=== PATIENT | female | born 1955 | race Caucasian/White ===

== ENCOUNTER 2019-10-16 07:51 | Day surgery (SDC) | payer MEDICARE, OTHER ==
[~2019-10-16 07:51] MED LIST: Acetaminophen 325 MG Tab PO SCH; Bisacodyl 5 MG Tab PO PRN; Cyclobenzaprine 10 MG Tab PO PRN; Ketorolac 15 MG/ML SDV IVPUSH PRN; Lactated Ringers 1,000 ML IV SCH; Lidocaine 1%/Sod Bicarbonate in NS 8.4% 1 ML Syringe IDERM PRN; Magnesium Hydroxide 400 MG/5 ML Susp 30 ML Cup PO PRN; Morphine 2 MG/ML SYRINGE IVPUSH PRN; Morphine 8 MG, EPINEPHrine 0.3 MG, Cefuroxime 750 MG, Ketorolac 30 MG, Sodium Chloride ... PRN; Naloxone 0.4 MG/ML SDV IVPUSH PRN; Ondansetron 4 MG/2 ML SDV IVPUSH PRN; Pregabalin 25 MG Cap PO SCH; Sennosides 8.6 MG Tab PO PRN; Sodium Chloride 0.9% 10 ML Syringe FLUSH PRN; oxyCODONE ER 10 MG TAB.ER PO SCH
[2019-10-16] MEDS ORDERED: Vancomycin 1 GM SDV ONE (08:09)
[2019-10-16] MEDS ORDERED: Triamcinolone Acetonide 40 MG/ML 1 ML SDV ONE (08:09)
[2019-10-16] MEDS ORDERED: ceFAZolin 1 GM Vial ONE ×2 (08:10→08:28)
[2019-10-16] MEDS ORDERED: Iodine/Sodium Iodide 2% Tincture 30 ML Bottle ONE (08:10)
[2019-10-16] MEDS ORDERED: Bupivacaine 0.25% 10 ML SDV ONE (08:10)
[2019-10-16] MEDS ORDERED: Propofol 200 MG/20 ML SDV ONE ×2 (08:24→08:30)
[2019-10-16] MEDS ORDERED: Ketamine 500 mg/10 ML MDV ONE (08:24)
[2019-10-16] MEDS ORDERED: Midazolam 1 MG/ML 2 ML SDV ONE (08:24)
[2019-10-16] MEDS ORDERED: Lidocaine 1% 4 ML ONE (08:25)
[2019-10-16] MEDS ORDERED: EPINEPHrine 1 MG/ML SDV ONE (08:48)
[2019-10-16] MEDS ORDERED: Ropivacaine 0.5% 5 MG/ML 30 ML SDV ONE (08:48)
[2019-10-16] MEDS ORDERED: Dexamethasone 4 MG/ML 5 ML MDV ONE (10:11)
[2019-10-16] MEDS ORDERED: diphenhydrAMINE 50 MG/ML SDV ONE (10:16)
[2019-10-16] MEDS ORDERED: Lactated Ringers 1,000 ML ONE (10:20)
[2019-10-16] MEDS ORDERED: Ondansetron 4 MG/2 ML SDV ONE (11:11)
[2019-10-16] MEDS ORDERED: HYDROmorphone 0.5 MG/0.5 ML Syringe IVPUSH PRN (11:34)
[2019-10-16] MEDS ORDERED: Ondansetron 4 MG/2 ML SDV IVPUSH PRN (11:34)
[2019-10-16] MEDS ORDERED: fentaNYL 100 MCG/2 ML SDV IVPUSH PRN (11:34)
--- NOTE | 2019-10-16 11:35 | PCM.POSTAN ---
POST ANESTHESIA ASSESSMENT - MENTAL STATUS Mental Status: Alert, Oriented - VITAL SIGNS Vital Signs: Last Vital Signs Temp 36.1 C 10/16/19 11:25 Pulse 84 10/16/19 08:00 Resp 12 10/16/19 11:30 BP 131/70 10/16/19 11:30 Pulse Ox 100 10/16/19 11:30 - RESPIRATORY Respiratory Status: Respiratory Rate WNL, Airway Patent, O2 Saturation Stable - CARDIOVASCULAR CV Status: Pulse Rate WNL, Blood Pressure Stable - GASTROINTESTINAL GI Status: No Symptoms - PAIN Pain Score: 0 - POST OP HYDRATION Hydration Status: Adequate & Stable
--- NOTE | 2019-10-16 11:37 | PCM.PREANE ---
Preanesthetic Assessment - Procedure Proposed Procedure: Right Total Knee Replacement - Anesthesia/Transfusion/Family Hx Anesthesia History: Prior Anesthesia Without Reaction Family History of Anesthesia Reaction: No - Review of Systems General: No Symptoms Pulmonary: No Symptoms Cardiovascular: No Symptoms Gastrointestinal: No Symptoms Neurological: No Symptoms Other: Reports: None - Physical Assessment NPO Status Date: 10/15/19 NPO Status Time: 23:30 Vital Signs: Last Vital Signs Temp 36.1 C 10/16/19 11:25 Pulse 84 10/16/19 08:00 Resp 12 10/16/19 11:30 BP 131/70 10/16/19 11:30 Pulse Ox 100 10/16/19 11:30 Height: 1.7 m Weight: 66.678 kg ASA Class: 2 Mental Status: Alert & Oriented x3 Airway Class: Mallampati = 2 Dentition: Reports: [place](s), Caries Thyro-Mental Finger Breadths: 2 Mouth Opening Finger Breadths: 3 ROM/Head Extension: Full Lungs: Clear to Auscultation, Normal Respiratory Effort Cardiovascular: Regular Rate, Regular Rhythm - Lab Values: Laboratory Last Values COVID-19 PCR Not detected (NOT DETECT) 10/13/19 09:30 MRSA (PCR) Negative 09/23/19 14:40 - Allergies Allergies/Adverse Reactions: Allergies Allergy/AdvReac Type Severity Reaction Status Date / Time No Known Drug Allergies Allergy unknown Verified 10/15/19 13:50 - Acknowledgements Anesthesia Type Planned: Spinal Pt an Appropriate Candidate for the Planned Anesthesia: Yes Alternatives and Risks of Anesthesia Discussed w Pt/Guardian: Yes Pt/Guardian Understands and Agrees with Anesthesia Plan: Yes PreAnesthesia Questionnaire HEENT History: Reports: Cataract, Hard of Hearing Other HEENT History: wears glasses Other Genitourinary History: UTI Other OB/BYN History: C section Musculoskeletal History: Reports: Arthritis - SUBSTANCE USE Smoking Status *Q: Never Smoker Recreational Drug Use History: No - HOME MEDS Home Medications: Home Meds Calcium Carbonate [Calcium] 500 mg PO DAILY 10/15/19 [History] Fish Oil/[place]-3 Fatty Acids [Fish Oil 1,000 MG] 1 cap PO DAILY 10/15/19 [History] Lactobacillus Combination No.4 [Probiotic] 1 cap PO DAILY 10/15/19 [History] Loratadine [Claritin] 10 mg PO DAILY 10/15/19 [History] Non-Formulary Medication [NF Drug] 1 tab PO DAILY 10/15/19 [History] Cholecalciferol (Vitamin D3) [Vitamin D] 5,000 unit PO DAILY 10/16/19 [History] - CURRENT (IN HOUSE) MEDS Current Meds: Current Medications Acetaminophen (Tylenol) 975 mg PO ONETIME [facility] Stop: 10/16/19 16:00 Last Admin: 10/16/19 08:02 Dose: 975 mg Documented by: Bisacodyl (Dulcolax) 5 mg PO DAILY PRN PRN Reason: Constipation Calcium Carbonate/Glycine (Tums) 500 mg PO DAILY [facility] Cholecalciferol (Vitamin D3) 5,000 unit PO DAILY [facility] Morphine Sulfate 8 mg/Epinephrine HCl 0.3 mg/Cefuroxime Sodium 750 mg/Ketorolac Tromethamine 30 mg/Sodium Chloride 7.9 ml 0 mg .XX ASDIRECTED PRN PRN Reason: Pain Stop: 10/16/19 12:00 Cyclobenzaprine HCl (Flexeril) 10 mg PO TID PRN PRN Reason: Spasms Docusate Sodium (Colace) 100 mg PO BID [facility] Famotidine (Pepcid) 20 mg PO Q12H [facility] Fentanyl (Sublimaze) 50 mcg IVPUSH Q5M PRN PRN Reason: Pain Hydromorphone HCl (Dilaudid) 0.5 mg IVPUSH Q10M PRN PRN Reason: Pain (severe 7-10) Lactated Ringer's (Ringers, Lactated) 1,000 mls @ 125 mls/hr IV ASDIRECTED [facility] Stop: 10/16/19 23:00 Last Admin: 10/16/19 08:30 Dose: 125 mls/hr Documented by: Cefazolin Sodium/Dextrose 2 gm (/ Premix) 50 mls @ 100 mls/hr IV Q8H [facility] Stop: 10/17/19 08:59 Ketorolac Tromethamine (Toradol) 15 mg IVPUSH Q6H PRN PRN Reason: Pain Lidocaine/Sodium Bicarbonate (Buffered Lidocaine 1% In Ns 8.4%) 0.25 ml IDERM ONETIME PRN PRN Reason: Prior to IV Start Stop: 10/16/19 18:00 Last Admin: 10/16/19 08:29 Dose: 0.25 ml Documented by: Loratadine (Claritin) 10 mg PO DAILY [facility] Magnesium Hydroxide (Milk Of Magnesia) 30 ml PO BID PRN PRN Reason: Constipation Morphine Sulfate (Morphine) 2 mg IVPUSH Q2H PRN PRN Reason: Breakthrough Pain Naloxone HCl (Narcan) 0.1 mg IVPUSH Q5M PRN PRN Reason: Oversedation Ondansetron HCl (Zofran) 4 mg IVPUSH Q6H PRN PRN Reason: Nausea/Vomiting Ondansetron HCl (Zofran) 4 mg IVPUSH ONETIME PRN PRN Reason: Nausea/Vomiting Oxycodone HCl (Oxycontin) 10 mg PO ONETIME [facility] Stop: 10/16/19 16:00 Last Admin: 10/16/19 08:02 Dose: 10 mg Documented by: Oxycodone/Acetaminophen (Percocet 325-5 Mg) 1 - 2 tab PO Q4H PRN PRN Reason: Pain Pregabalin (Lyrica) 50 mg PO ONETIME [facility] Stop: 10/16/19 16:00 Last Admin: 10/16/19 08:02 Dose: 50 mg Documented by: Rivaroxaban (Xarelto) 10 mg PO DAILY [facility] Saccharomyces Boulardii (Florastor) 250 mg PO DAILY [facility] Senna (Senna) 8.6 mg PO BID PRN PRN Reason: Constipation Sodium Chloride (Saline Flush) 10 ml FLUSH ASDIRECTED PRN PRN Reason: Keep Vein Open Stop: 10/16/19 18:00 Discontinued Medications Bupivacaine HCl (Sensorcaine-Mpf 0.25%) Confirm Administered Dose 40 ml .ROUTE .STK-MED ONE Stop: 10/16/19 08:11 Cefazolin Sodium (Ancef) Confirm Administered Dose 2 gm .ROUTE .STK-MED ONE Stop: 10/16/19 08:11 Cefazolin Sodium (Ancef) Confirm Administered Dose 2 gm .ROUTE .STK-MED ONE Stop: 10/16/19 08:29 Dexamethasone (Dexamethasone) Confirm Administered Dose 20 mg .ROUTE .STK-MED ONE Stop: 10/16/19 10:12 Diphenhydramine HCl (Benadryl) Confirm Administered Dose 50 mg .ROUTE .STK-MED ONE Stop: 10/16/19 10:17 Epinephrine HCl (Adrenalin) Confirm Administered Dose 1 mg .ROUTE .STK-MED ONE Stop: 10/16/19 08:49 Glycopyrrolate () Confirm Administered Dose 1 mg .ROUTE .STK-MED ONE Stop: 10/16/19 11:17 Lidocaine HCl (Xylocaine-Mpf 1%) Confirm Administered Dose 4 mls @ as directed .ROUTE .STK-MED ONE Stop: 10/16/19 08:26 Lactated Ringer's (Ringers, Lactated) Confirm Administered Dose 1,000 mls @ as directed .ROUTE .STK-MED ONE Stop: 10/16/19 10:21 Iodine (Iodine 2% Mild Tincture) Confirm Administered Dose 30 ml .ROUTE .STK-MED ONE Stop: 10/16/19 08:11 Ketamine HCl (Ketalar) Confirm Administered Dose 500 mg .ROUTE .STK-MED ONE Stop: 10/16/19 08:25 Ketorolac Tromethamine (Toradol) 15 mg IVPUSH Q6H PRN PRN Reason: Pain Midazolam HCl (Versed 1 Mg/Ml) Confirm Administered Dose 2 mg .ROUTE .STK-MED ONE Stop: 10/16/19 08:25 Ondansetron HCl (Zofran) Confirm Administered Dose 4 mg .ROUTE .STK-MED ONE Stop: 10/16/19 11:12 Propofol (Diprivan 20 Ml) Confirm Administered Dose 400 mg .ROUTE .STK-MED ONE Stop: 10/16/19 08:25 Propofol (Diprivan 20 Ml) Confirm Administered Dose 200 mg .ROUTE .STK-MED ONE Stop: 10/16/19 08:31 Ropivacaine (Naropin 0.5%) Confirm Administered Dose 30 ml .ROUTE .STK-MED ONE Stop: 10/16/19 08:49 Tranexamic Acid (Cyklokapron) Confirm Administered Dose 1,000 mg .ROUTE .STK-MED ONE Stop: 10/16/19 08:10 Triamcinolone Acetonide (Kenalog-40) Confirm Administered Dose 80 mg .ROUTE .STK-MED ONE Stop: 10/16/19 08:10 Vancomycin HCl (Vancomycin) Confirm Administered Dose 1 gm .ROUTE .STK-MED ONE Stop: 10/16/19 08:10
--- NOTE | 2019-10-16 12:26 | PCM.SN.2 ---
- Free Text/Narrative Note: Right selective femoral nerve block at the adductor canal for post-procedure pain control under US guidance requested by Dr. Savage. Time Out: 1201 Start: 1204 End: 1208 Chart reviewed. Consent signed. Questions answered. Appropriate monitors applied. Time out performed. Right mid-shaft femur identified with ultrasound, scanning medially of femur, the femoral artery in the adductor canal visualized, and the femoral nerve located laterally to the artery. The skin was prepped lateral to the ultrasound probe with chlorahexadine times two. The 21ga 4 insulated block needle was inserted under direct ultrasound guidance into the adductor canal. 25mL of 0.5% ropivacaine with 1:200,000 epinephrine was injected circumferentially around the nerve with intermittent negative aspiration noted. Patient tolerated the procedure well. Sterile technique noted along with sterile gloves, mask, and sterile probe cover. See picture on progress note and vital signs on nurses notes. Block completed in PACU. Eduardo Rodriguez CRNA
[2019-10-16] MEDS ORDERED: Ketorolac 15 MG/ML SDV IVPUSH PRN (13:00)
--- NOTE | 2019-10-16 13:47 | CR ---
Right knee: AP and lateral views of the right knee were obtained. Comparison: No previous right knee study. Knee prosthesis is seen. Components are aligned. Soft tissue air is noted from the surgical procedure. Underlying bony structures are intact. Impression: 1. Satisfactory postop radiographic appearance of recently placed right knee prosthesis. Diagnostic code #1 This report was dictated in MDT
[2019-10-16] MEDS: Acetaminophen/oxyCODONE 325-5 MG Tab PO PRN ×2 (15:10→20:38)
[2019-10-16] MEDS: ceFAZolin 2 GM in Premix Bag 1 BAG IV SCH (16:56)
[2019-10-16] MEDS: Famotidine 20 MG Tab PO SCH (21:25)
[2019-10-16] MEDS: Docusate Sodium 100 MG Cap PO SCH (21:25)
[2019-10-17] MEDS: Acetaminophen/oxyCODONE 325-5 MG Tab PO PRN ×2 (00:50→05:56)
[2019-10-17] MEDS: ceFAZolin 2 GM in Premix Bag 1 BAG IV SCH ×2 (00:57→07:53)
[2019-10-17] MEDS ORDERED: Acetaminophen/HYDROcodone 325-5 MG Tab PO PRN (08:02)
--- NOTE | 2019-10-17 08:21 | PCM.SURGPN ---
- General Info Date of Service: 10/17/19 POD#: 1 Functional Status: Reports: Pain Controlled, Tolerating Diet, Ambulating, Urinating, Incentive Spirometry, Other (The pt states she is moving well. She is bothered by nausea.) - Review of Systems General: Denies: Fever, Chills Gastrointestinal: Reports: Nausea, Vomiting, Other (The pt reports today that she has a hx of nausea and vomiting with use of Percocet.) - Patient Data Vitals - Most Recent: Last Vital Signs Temp 97.0 F 10/17/19 05:55 Pulse 53 L 10/17/19 05:55 Resp 16 10/17/19 05:55 BP 129/70 10/17/19 05:55 Pulse Ox 97 10/17/19 05:55 Weight - Most Recent: 147 lb I&O - Last 24 Hours: Intake & Output 10/16/19 10/17/19 10/17/19 22:59 06:59 14:59 Intake Total 50 Output Total 300 700 Balance -300 -650 Lab Results Last 24 Hrs: Laboratory Results - last 24 hr 10/17/19 10/17/19 Range/Units 05:50 05:50 WBC 12.34 H (3.98-10.04) K/mm3 RBC 3.88 L (3.98-5.22) M/mm3 Hgb 11.3 (11.2-15.7) gm/dl Hct 35.1 (34.1-44.9) % MCV 90.5 (79.4-94.8) fl MCH 29.1 (25.6-32.2) pg MCHC 32.2 (32.2-35.5) g/dl RDW Std Deviation 43.1 (36.4-46.3) fL Plt Count 305 (182-369) K/mm3 MPV 10.2 (9.4-12.3) fl Sodium 131 L (136-145) mEq/L Potassium 4.6 (3.5-5.1) mEq/L Chloride 98 (98-107) mEq/L Carbon Dioxide 24 (21-32) mEq/L Anion Gap 13.6 (5-15) BUN 13 (7-18) mg/dL Creatinine 1.0 (0.55-1.02) mg/dL Est Cr Clr Drug Dosing 54.54 mL/min Estimated GFR (MDRD) 56 (>60) mL/min BUN/Creatinine Ratio 13.0 L (14-18) Glucose 120 H (80-115) mg/dL Calcium 9.3 (8.5-10.1) mg/dL Total Bilirubin 0.3 (0.2-1.0) mg/dL AST 23 (15-37) U/L ALT 21 (14-59) U/L Alkaline Phosphatase 64 (46-116) U/L Total Protein 7.3 (6.4-8.2) g/dl Albumin 3.4 (3.4-5.0) g/dl Globulin 3.9 gm/dL Albumin/Globulin Ratio 0.9 L (1-2) Med Orders - Current: Current Medications Hydrocodone Bitart/Acetaminophen (Foster 325-5 Mg) 1 - 2 tab PO Q4H PRN PRN Reason: Pain Bisacodyl (Dulcolax) 5 mg PO DAILY PRN PRN Reason: Constipation Calcium Carbonate/Glycine (Tums) 500 mg PO DAILY [facility] Cholecalciferol (Vitamin D3) 5,000 unit PO DAILY [facility] Cyclobenzaprine HCl (Flexeril) 10 mg PO TID PRN PRN Reason: Spasms Docusate Sodium (Colace) 100 mg PO BID [facility] Last Admin: 10/16/19 21:25 Dose: 100 mg Documented by: Famotidine (Pepcid) 20 mg PO Q12H [facility] Last Admin: 10/16/19 21:25 Dose: 20 mg Documented by: Cefazolin Sodium/Dextrose 2 gm (/ Premix) 50 mls @ 100 mls/hr IV Q8H [facility] Stop: 10/17/19 08:59 Last Admin: 10/17/19 07:53 Dose: 100 mls/hr Documented by: Ketorolac Tromethamine (Toradol) 15 mg IVPUSH Q6H PRN PRN Reason: Pain Loratadine (Claritin) 10 mg PO DAILY [facility] Magnesium Hydroxide (Milk Of Magnesia) 30 ml PO BID PRN PRN Reason: Constipation Morphine Sulfate (Morphine) 2 mg IVPUSH Q2H PRN PRN Reason: Breakthrough Pain Naloxone HCl (Narcan) 0.1 mg IVPUSH Q5M PRN PRN Reason: Oversedation Ondansetron HCl (Zofran) 4 mg IVPUSH Q6H PRN PRN Reason: Nausea/Vomiting Last Admin: 10/17/19 07:52 Dose: 4 mg Documented by: Rivaroxaban (Xarelto) 10 mg PO DAILY [facility] Saccharomyces Boulardii (Florastor) 250 mg PO DAILY [facility] Senna (Senna) 8.6 mg PO BID PRN PRN Reason: Constipation Discontinued Medications Acetaminophen (Tylenol) 975 mg PO ONETIME [facility] Stop: 10/16/19 16:00 Last Admin: 10/16/19 08:02 Dose: 975 mg Documented by: Bupivacaine HCl (Sensorcaine-Mpf 0.25%) Confirm Administered Dose 40 ml .ROUTE .STK-MED ONE Stop: 10/16/19 08:11 Last Admin: 10/16/19 10:53 Dose: 34 ml Documented by: Cefazolin Sodium (Ancef) Confirm Administered Dose 2 gm .ROUTE .STK-MED ONE Stop: 10/16/19 08:11 Last Admin: 10/16/19 10:52 Dose: 2 gm Documented by: Cefazolin Sodium (Ancef) Confirm Administered Dose 2 gm .ROUTE .STK-MED ONE Stop: 10/16/19 08:29 Morphine Sulfate 8 mg/Epinephrine HCl 0.3 mg/Cefuroxime Sodium 750 mg/Ketorolac Tromethamine 30 mg/Sodium Chloride 7.9 ml 0 mg .XX ASDIRECTED PRN PRN Reason: Pain Stop: 10/16/19 12:00 Last Admin: 10/16/19 10:53 Dose: 788.3 mg Documented by: Dexamethasone (Dexamethasone) Confirm Administered Dose 20 mg .ROUTE .STK-MED ONE Stop: 10/16/19 10:12 Diphenhydramine HCl (Benadryl) Confirm Administered Dose 50 mg .ROUTE .STK-MED ONE Stop: 10/16/19 10:17 Epinephrine HCl (Adrenalin) Confirm Administered Dose 1 mg .ROUTE .STK-MED ONE Stop: 10/16/19 08:49 Fentanyl (Sublimaze) 50 mcg IVPUSH Q5M PRN PRN Reason: Pain Stop: 10/16/19 18:00 Glycopyrrolate () Confirm Administered Dose 1 mg .ROUTE .STK-MED ONE Stop: 10/16/19 11:17 Hydromorphone HCl (Dilaudid) 0.5 mg IVPUSH Q10M PRN PRN Reason: Pain (severe 7-10) Stop: 10/16/19 18:00 Lactated Ringer's (Ringers, Lactated) 1,000 mls @ 125 mls/hr IV ASDIRECTED [facility] Stop: 10/16/19 23:00 Last Admin: 10/16/19 08:30 Dose: 125 mls/hr Documented by: Lidocaine HCl (Xylocaine-Mpf 1%) Confirm Administered Dose 4 mls @ as directed .ROUTE .STK-MED ONE Stop: 10/16/19 08:26 Lactated Ringer's (Ringers, Lactated) Confirm Administered Dose 1,000 mls @ as directed .ROUTE .STK-MED ONE Stop: 10/16/19 10:21 Iodine (Iodine 2% Mild Tincture) Confirm Administered Dose 30 ml .ROUTE .STK-MED ONE Stop: 10/16/19 08:11 Last Admin: 10/16/19 10:50 Dose: 18 ml Documented by: Ketamine HCl (Ketalar) Confirm Administered Dose 500 mg .ROUTE .STK-MED ONE Stop: 10/16/19 08:25 Ketorolac Tromethamine (Toradol) 15 mg IVPUSH Q6H PRN PRN Reason: Pain Lidocaine/Sodium Bicarbonate (Buffered Lidocaine 1% In Ns 8.4%) 0.25 ml IDERM ONETIME PRN PRN Reason: Prior to IV Start Stop: 10/16/19 18:00 Last Admin: 10/16/19 08:29 Dose: 0.25 ml Documented by: Midazolam HCl (Versed 1 Mg/Ml) Confirm Administered Dose 2 mg .ROUTE .STK-MED ONE Stop: 10/16/19 08:25 Ondansetron HCl (Zofran) Confirm Administered Dose 4 mg .ROUTE .STK-MED ONE Stop: 10/16/19 11:12 Ondansetron HCl (Zofran) 4 mg IVPUSH ONETIME PRN PRN Reason: Nausea/Vomiting Stop: 10/16/19 18:00 Oxycodone HCl (Oxycontin) 10 mg PO ONETIME [facility] Stop: 10/16/19 16:00 Last Admin: 10/16/19 08:02 Dose: 10 mg Documented by: Oxycodone/Acetaminophen (Percocet 325-5 Mg) 1 - 2 tab PO Q4H PRN PRN Reason: Pain Last Admin: 10/17/19 05:56 Dose: 2 tab Documented by: Pregabalin (Lyrica) 50 mg PO ONETIME [facility] Stop: 10/16/19 16:00 Last Admin: 10/16/19 08:02 Dose: 50 mg Documented by: Propofol (Diprivan 20 Ml) Confirm Administered Dose 200 mg .ROUTE .STK-MED ONE Stop: 10/16/19 08:25 Propofol (Diprivan 20 Ml) Confirm Administered Dose 200 mg .ROUTE .STK-MED ONE Stop: 10/16/19 08:31 Ropivacaine (Naropin 0.5%) Confirm Administered Dose 30 ml .ROUTE .STK-MED ONE Stop: 10/16/19 08:49 Sodium Chloride (Saline Flush) 10 ml FLUSH ASDIRECTED PRN PRN Reason: Keep Vein Open Stop: 10/16/19 18:00 Tranexamic Acid (Cyklokapron) Confirm Administered Dose 1,000 mg .ROUTE .STK-MED ONE Stop: 10/16/19 08:10 Last Admin: 10/16/19 10:54 Dose: 1,000 mg Documented by: Triamcinolone Acetonide (Kenalog-40) Confirm Administered Dose 80 mg .ROUTE .STK-MED ONE Stop: 10/16/19 08:10 Last Admin: 10/16/19 11:13 Dose: 80 mg Documented by: Vancomycin HCl (Vancomycin) Confirm Administered Dose 1 gm .ROUTE .STK-MED ONE Stop: 10/16/19 08:10 Last Admin: 10/16/19 10:54 Dose: 1 gm Documented by: - Exam Wound/Incisions: Dressing Dry and Intact General: Alert, Cooperative, No Acute Distress Lungs: Normal Respiratory Effort Extremities: Other (NVS intact for RLE. Linn's negative. ) Sepsis Event Note - Evaluation Sepsis Screening Result: No Definite Risk - Focused Exam Vital Signs: Vital Signs Temp Pulse Resp BP Pulse Ox 10/17/19 05:55 97.0 F 53 L 16 129/70 97 10/17/19 01:01 97.3 F 80 18 123/92 H 96 - Problem List Review Problem List Initiated/Reviewed/Updated: Yes - My Orders Last 24 Hours: Active Orders 24 hr Category Date Time Status Communication Order [RC] ASDIRECTED Care 10/16/19 11:34 Active Communication Order [RC] ASDIRECTED Care 10/17/19 08:17 Ordered Pulse Oximetry [RC] ASDIRECTED Care 10/16/19 11:34 Active Ready for Discharge [RC] PER UNIT ROUTINE Care 10/17/19 08:17 Ordered Vital Signs [RC] Q4HR Care 10/16/19 11:34 Active Regular Diet [DIET] Diet 10/16/19 Lunch Active Acetaminophen/HYDROcodone [Foster 325-5 MG] Med 10/17/19 08:02 Active 1 - 2 tab PO Q4H PRN Calcium Carbonate [Tums] Med 10/17/19 09:00 Active 500 mg PO DAILY Cholecalciferol (Vitamin D3) [Vitamin D3] Med 10/17/19 09:00 Active 5,000 unit PO DAILY Docusate Sodium [Colace] Med 10/16/19 21:00 Active 100 mg PO BID Famotidine [Pepcid] Med 10/16/19 21:00 Active 20 mg PO Q12H Ketorolac [Toradol] Med 10/16/19 13:00 Active 15 mg IVPUSH Q6H PRN Loratadine [Claritin] Med 10/17/19 09:00 Active 10 mg PO DAILY Rivaroxaban [Xarelto] Med 10/17/19 09:00 Active 10 mg PO DAILY Saccharomyces Boulardii [Florastor] Med 10/17/19 09:00 Active 250 mg PO DAILY ceFAZolin [Ancef] 2 gm Med 10/16/19 16:30 Active Premix Bag 1 bag IV Q8H Medication Orders Hydrocodone Bitart/Acetaminophen (Foster 325-5 Mg) 1 - 2 tab PO Q4H PRN PRN Reason: Pain Bisacodyl (Dulcolax) 5 mg PO DAILY PRN PRN Reason: Constipation Calcium Carbonate/Glycine (Tums) 500 mg PO DAILY [facility] Cholecalciferol (Vitamin D3) 5,000 unit PO DAILY [facility] Cyclobenzaprine HCl (Flexeril) 10 mg PO TID PRN PRN Reason: Spasms Docusate Sodium (Colace) 100 mg PO BID [facility] Last Admin: 10/16/19 21:25 Dose: 100 mg Documented by: JOAQUIN Famotidine (Pepcid) 20 mg PO Q12H [facility] Last Admin: 10/16/19 21:25 Dose: 20 mg Documented by: JOAQUIN Cefazolin Sodium/Dextrose 2 gm (/ Premix) 50 mls @ 100 mls/hr IV Q8H [facility] Stop: 10/17/19 08:59 Last Admin: 10/17/19 07:53 Dose: 100 mls/hr Documented by: Infusion: 10/17/19 01:27 Dose: 100 mls/hr Documented by: Admin: 10/17/19 00:57 Dose: 100 mls/hr Documented by: Infusion: 10/16/19 17:26 Dose: 100 mls/hr Documented by: Admin: 10/16/19 16:56 Dose: 100 mls/hr Documented by: CICI Ketorolac Tromethamine (Toradol) 15 mg IVPUSH Q6H PRN PRN Reason: Pain Loratadine (Claritin) 10 mg PO DAILY [facility] Magnesium Hydroxide (Milk Of Magnesia) 30 ml PO BID PRN PRN Reason: Constipation Morphine Sulfate (Morphine) 2 mg IVPUSH Q2H PRN PRN Reason: Breakthrough Pain Naloxone HCl (Narcan) 0.1 mg IVPUSH Q5M PRN PRN Reason: Oversedation Ondansetron HCl (Zofran) 4 mg IVPUSH Q6H PRN PRN Reason: Nausea/Vomiting Last Admin: 10/17/19 07:52 Dose: 4 mg Documented by: CICI Rivaroxaban (Xarelto) 10 mg PO DAILY [facility] Saccharomyces Boulardii (Florastor) 250 mg PO DAILY [facility] Senna (Senna) 8.6 mg PO BID PRN PRN Reason: Constipation - Assessment Assessment (Free Text/Narrative):: POD#1 - right TKA with left knee cortisone injection - Plan Plan (Free Text/Narrative):: 1. Hgb 11.3. 2. Xarelto 10mg PO daily x 14 days (family hx VTE). Pt will then transition to 325mg ASA PO BID. Frequent mobility, TEDs. 3. Discharge to home today. 4. Outpatient therapy. The pt's case was discussed with Dr. Savage.
[2019-10-17] MEDS ORDERED: Rivaroxaban 10 MG Tab PO SCH (09:00)
[2019-10-17] MEDS ORDERED: Calcium Carbonate 500 MG Tab.Chew PO SCH (09:00)
[2019-10-17] MEDS ORDERED: Cholecalciferol (Vitamin D3) 5,000 UNIT Tab PO SCH (09:00)
[2019-10-17] MEDS ORDERED: Loratadine 10 MG Tab PO SCH (09:00)
[2019-10-17] MEDS ORDERED: Saccharomyces Boulardii (Probiotic) 250 MG Cap PO SCH (09:00)
--- NOTE | 2019-10-17 09:37 | PCM48HPAN ---
Post Anesthesia Note - EVALUATION WITHIN 48HRS OF ANESTHETIC Vital Signs in Normal Range: Yes Patient Participated in Evaluation: Yes Respiratory Function Stable: Yes Airway Patent: Yes Cardiovascular Function Stable: Yes Hydration Status Stable: Yes Pain Control Satisfactory: Yes Nausea and Vomiting Control Satisfactory: Yes Mental Status Recovered: Yes Vital Signs: Last Vital Signs Temp 36.7 C 10/17/19 09:13 Pulse 50 L 10/17/19 09:13 Resp 14 10/17/19 09:13 BP 127/64 10/17/19 09:13 Pulse Ox 99 10/17/19 09:13
[2019-10-17] MEDS: Docusate Sodium 100 MG Cap PO SCH (11:28)
[2019-10-17] MEDS: Famotidine 20 MG Tab PO SCH (11:28)
--- NOTE | 2019-10-20 07:08 | PCM.OPNOTE ---
- General Post-Op/Procedure Note Date of Surgery/Procedure: 10/16/19 Operative Procedure(s): right total knee with left knee corticosteroid injection Pre Op Diagnosis: bilateral knee osteoarthrosis Post-Op Diagnosis: Same Anesthesia Technique: Local, MAC, Spinal Primary Surgeon: Parveen Savage Anesthesia Provider: Xin Rodriguez Live Truck Operator: Ratna Flores Live Truck Operator: Naomy Bonner EBL in mLs: 400 Complications: None Condition: Good Free Text/Narrative:: 05/30 9mm 32x10
--- NOTE | 2019-10-20 22:24 | OR ---
DATE OF OPERATION: 10/16/2019 SURGEON: Parveen Savage MD OPERATION PERFORMED: Right total knee arthroplasty with left knee corticosteroid injection. PREOPERATIVE DIAGNOSIS: Bilateral knee osteoarthrosis. POSTOPERATIVE DIAGNOSIS: Bilateral knee osteoarthrosis. ANESTHESIA: Local MAC with spinal. ANESTHESIA PROVIDER: Chelly Bautista. ASSISTANTS: Ratna Flores PA-C and Naomy Bonner LPN ESTIMATED BLOOD LOSS: 400 mL. COMPLICATIONS: None. CONDITION: Stable. IMPLANTS: 1. [place] size 4 press-fit CR femur. 2. [place] size 4 press-fit tibial baseplate. 3. [place] size 4, 9 mm CS polyethylene insert. 4. [place] size 32 x 10 mm press-fit asymmetric patella. DESCRIPTION OF PROCEDURE: The patient was identified in the preop holding area. Proper site was marked and identified by the surgeon. The patient was taken back to the operating theater. After adequate anesthesia, the patient's right lower extremity had a nonsterile tourniquet applied and it was sterilely prepped and draped in the usual sterile fashion. OR time-out was performed. The patient received 2 g IV Ancef. At this time, the right lower extremity was exsanguinated. Tourniquet was insufflated to 300 mmHg. Standard medial parapatellar incision was made. Medial parapatellar arthrotomy was created. Deep fibers of the MCL were raised and anterior fat pad was resected. At this time, attention was turned to the patella. Patella measured 24 and resected to a 14 for a 32 x 10 mm patella. Drill holes were then drilled and found to be in adequate position. The drill was then drilled in the distal femur and the intramedullary distal femoral cutting guide was then placed. 8 mm was resected off the distal femur and was found to be an adequate resection. Sizing guide was placed. It was found to be a size 4 press-fit CR femur that was shown on the implant record at the beginning of this dictation. The drill holes were drilled for the epicondylar axis using Whitesides line and epicondyles as reference. At this time, the 4-in- 1 cutting block was placed. An anterior posterior and anterior and posterior chamfer cuts were then completed. Attention was turned to the tibia. The posterior medial lateral retractors were placed. The extramedullary tibial guide was placed. It was placed in the old footprint of the ACL. It was aligned with the center of the ankle and 0 degrees of slope, 9 mm was then resected off the unaffected side. There was found to be an acceptable reduction. At this time, posterior osteophytes were removed along with medial and lateral meniscus. A trial implant was placed with a correct sized tibia that was mentioned at the beginning of the dictation. A [place] size 4, 9 mm CS polyethylene insert was then placed. The patient's knee was brought through range of motion. The patella was tracking centrally and was stable to varus and valgus stress. Alignment was found to be roughly at 0 degrees. The tibia was stamped and drilled in proper rotation. The universal tibial base plate was impacted in place. Next, the [place] size 4 press-fit CR femur impacted into place and the [place] size 4, 9 mm CS polyethylene insert was placed. The patient's knee was brought into full extension. The patella was then press-fit in place at this time. Tourniquet was deflated. One liter dilute Betadine solution was irrigated through the knee along with 3 L of pulse lavage irrigation with Ancef. Periarticular injection was then completed. The patient's knee was brought through a range of motion. Knee was found to be stable to varus valgus stress, the patella was tracking centrally with full range of motion. At this time, a #2 barbed suture was used for closure of the medial parapatellar arthrotomy. Topical tranexamic acid was placed. 2-0 Vicryl was used subcutaneously, Prineo was used for the skin. The patient tolerated the procedure well and was sent to the PACU in stable condition. After this was completed, under sterile technique, 2 mL of 40 mg Kenalog and 4 mL 0.25% Marcaine were injected in the left knee. The patient tolerated all procedures well. MMDION /[id number] KINZA
== END 2019-10-17 10:15 | disposition home or self-care (01) ==
LOC: JD.SDS 07:51 → JD.MS 07:51 → JD.OB 12:00 → JD.SDS 10-17 10:15
PROVIDERS: ATTEND Orthopaedic Surgery
DX: M17.0 Bilateral primary osteoarthritis of knee (principal); M25.761 Osteophyte, right knee; H26.9 Unspecified cataract; G89.18 Other acute postprocedural pain; Z11.59 Encounter for screening for other viral diseases
CPT/HCPCS: 20610; 27447; 36415; 73560; 80053; 85027; 87641; 97110; 97116; 97161; 97165; 97535; A9270; C1776; J0171; J0690; J0697; J1100; J1200; J1885; J2001; J2250; J2270; J2405; J2704; J2795; J3301; J3370; J3490; J7120; 01402; 64450; U0002

== ENCOUNTER 2020-01-13 10:04 | Day surgery (SDC) | payer MEDICARE, OTHER ==
[2020-01-13] MEDS: Polymyxin B/Trimethoprim 10 ML Bottle EYELF SCH ×3 (10:01→11:47)
[~2020-01-13 10:04] MED LIST changes: -Acetaminophen 325 MG Tab PO SCH; -Bisacodyl 5 MG Tab PO PRN; +Cefuroxime 10 MG/ML SYRINGE EYELF SCH; -Cyclobenzaprine 10 MG Tab PO PRN; -Ketorolac 15 MG/ML SDV IVPUSH PRN; -Lactated Ringers 1,000 ML IV SCH; +Lidocaine 1% PF 2 ML SDV INJECT SCH; -Lidocaine 1%/Sod Bicarbonate in NS 8.4% 1 ML Syringe IDERM PRN; -Magnesium Hydroxide 400 MG/5 ML Susp 30 ML Cup PO PRN; -Morphine 2 MG/ML SYRINGE IVPUSH PRN; -Morphine 8 MG, EPINEPHrine 0.3 MG, Cefuroxime 750 MG, Ketorolac 30 MG, Sodium Chloride ... PRN; -Naloxone 0.4 MG/ML SDV IVPUSH PRN; -Ondansetron 4 MG/2 ML SDV IVPUSH PRN; +Pilocarpine 4% Ophth Soln 15 ML Bot EYELF SCH; -Pregabalin 25 MG Cap PO SCH; -Sennosides 8.6 MG Tab PO PRN; -Sodium Chloride 0.9% 10 ML Syringe FLUSH PRN; -oxyCODONE ER 10 MG TAB.ER PO SCH
[2020-01-13] MEDS: Brimonidine 0.2% Ophth Soln 5 ML Bottle EYELF SCH ×3 (10:04→11:47)
[2020-01-13] MEDS: Phenylephrine 2.5% Ophth Soln 2 ML Bot EYELF SCH ×6 (10:06→11:26)
[2020-01-13] MEDS: Tropicamide 1% Ophth Soln 15 ML Bottle EYELF SCH ×3 (10:17→11:08)
--- NOTE | 2020-01-13 10:23 | PCM.PREANE ---
Preanesthetic Assessment - Procedure Proposed Procedure: Cataract Extraction Left Eye - Anesthesia/Transfusion/Family Hx Anesthesia History: Prior Anesthesia Without Reaction Type of Anesthesia Reaction: Excessive Nausea/Vomiting Family History of Anesthesia Reaction: No Transfusion History: Prior Transfusion Without Reaction - Review of Systems General: No Symptoms Pulmonary: No Symptoms Cardiovascular: No Symptoms Gastrointestinal: No Symptoms Neurological: Pre-Existing Deficit (Buldging discs in neck, good ROM. Stiffness at times. ) Other: Reports: None - Physical Assessment NPO Status Date: 01/12/20 NPO Status Time: 17:00 Vital Signs: 98.3F 139/99 86 16 99% Weight: 63.503 kg ASA Class: 2 Mental Status: Alert & Oriented x3 Airway Class: Mallampati = 2 Dentition: Reports: Normal Dentition Thyro-Mental Finger Breadths: 3 Mouth Opening Finger Breadths: 3 ROM/Head Extension: Full Lungs: Clear to Auscultation, Normal Respiratory Effort Cardiovascular: Regular Rate, Regular Rhythm - Allergies Allergies/Adverse Reactions: Allergies Allergy/AdvReac Type Severity Reaction Status Date / Time No Known Drug Allergies Allergy unknown Verified 01/12/20 16:00 - Acknowledgements Anesthesia Type Planned: MAC Pt an Appropriate Candidate for the Planned Anesthesia: Yes Alternatives and Risks of Anesthesia Discussed w Pt/Guardian: Yes Pt/Guardian Understands and Agrees with Anesthesia Plan: Yes PreAnesthesia Questionnaire HEENT History: Reports: Cataract, Hard of Hearing Other HEENT History: wears glasses Other Genitourinary History: UTI Other OB/BYN History: C section Musculoskeletal History: Reports: Arthritis - HOME MEDS Home Medications: Home Meds Calcium Carbonate [Calcium] 500 mg PO DAILY 10/15/19 [History] Loratadine [Claritin] 10 mg PO DAILY 10/15/19 [History] Dextran 70/Hypromellose [Artificial Tears] 1 drop EYEBOTH ASDIRECTED PRN 01/12/20 [History] Fish Oil/[place]-3 Fatty Acids [Fish Oil 1,000 MG] 1 gm PO DAILY 01/12/20 [History ] - CURRENT (IN HOUSE) MEDS Current Meds: Current Medications Brimonidine Tartrate (Alphagan 0.2% Ophth Soln) 0 ml EYELF ASDIRECTED PALOMA Stop: 01/13/20 18:00 Last Admin: 01/13/20 10:04 Dose: 1 drop Documented by: Cefuroxime Sodium (Zinacef) 0 mg EYELF ASDIRECTED PALOMA Stop: 01/13/20 18:00 Lidocaine HCl (Xylocaine-Mpf 1%) 0 ml INJECT ASDIRECTED PALOMA Stop: 01/13/20 18:00 Phenylephrine HCl ([place]-Synephrine 2.5% Ophth Soln) 0 ml EYELF ASDIRECTED PALOMA Stop: 01/13/20 18:00 Last Admin: 01/13/20 10:14 Dose: 1 drop Documented by: Pilocarpine HCl (Pilocar 4% Ophth Soln) 0 ml EYELF ASDIRECTED PALOMA Stop: 01/13/20 18:00 Polymyxin/Trimethoprim Sulfate (Polytrim Ophth Soln) 0 ml EYELF ASDIRECTED PALOMA Stop: 01/13/20 18:00 Last Admin: 01/13/20 10:01 Dose: 1 drop Documented by: Tetracaine HCl (Tetracaine 0.5% Steri-Unit Aminah) 0 ml EYEBOTH ASDIRECTED PALOMA Stop: 01/13/20 18:00 Tropicamide (Mydriacyl 1% Oph Soln) 0 ml EYELF ASDIRECTED PALOMA Stop: 01/13/20 18:00 Last Admin: 01/13/20 10:17 Dose: 1 drop Documented by:
[2020-01-13] MEDS: Tetracaine HCl/PF 0.5% 4 ML Bottle EYEBOTH SCH ×4 (11:11→11:35)
--- NOTE | 2020-01-13 11:49 | PCM48HPAN ---
Post Anesthesia Note - EVALUATION WITHIN 48HRS OF ANESTHETIC Vital Signs in Normal Range: Yes Patient Participated in Evaluation: Yes Respiratory Function Stable: Yes Airway Patent: Yes Cardiovascular Function Stable: Yes Hydration Status Stable: Yes Pain Control Satisfactory: Yes Nausea and Vomiting Control Satisfactory: Yes Mental Status Recovered: Yes Vital Signs: Last Vital Signs Temp 36.8 C 01/13/20 10:00 Pulse 86 01/13/20 10:00 Resp 16 01/13/20 10:00 BP 139/99 H 01/13/20 10:00 Pulse Ox 99 01/13/20 10:00
== END 2020-01-13 11:58 | disposition home or self-care (01) ==
LOC: JD.SDS 10:04
PROVIDERS: ATTEND Ophthalmology
DX: H25.813 Combined forms of age-related cataract, bilateral (principal); H35.363 Drusen (degenerative) of macula, bilateral; H35.3131 Nonexudative age-related macular degeneration, bilateral, early dry stage; H31.011 Macula scars of posterior pole (postinflammatory) (post-traumatic), right eye; H43.393 Other vitreous opacities, bilateral; H16.103 Unspecified superficial keratitis, bilateral; H16.223 Keratoconjunctivitis sicca, not specified as Sjogren's, bilateral; Z98.890 Other specified postprocedural states; Z79.899 Other long term (current) drug therapy
CPT/HCPCS: 66984; C1780; J0697; J2001

== ENCOUNTER 2020-02-03 13:01 | Day surgery (SDC) | payer MEDICARE, OTHER ==
[~2020-02-03 13:01] MED LIST changes: -Cefuroxime 10 MG/ML SYRINGE EYELF SCH; +Cefuroxime 10 MG/ML SYRINGE EYERT SCH; -Pilocarpine 4% Ophth Soln 15 ML Bot EYELF SCH
[2020-02-03] MEDS: Polymyxin B/Trimethoprim 10 ML Bottle EYERT SCH ×4 (13:13→14:59)
[2020-02-03] MEDS: Brimonidine 0.2% Ophth Soln 5 ML Bottle EYERT SCH ×4 (13:17→14:59)
[2020-02-03] MEDS: Phenylephrine 2.5% Ophth Soln 2 ML Bot EYERT SCH ×5 (13:21→14:41)
[2020-02-03] MEDS: Tropicamide 1% Ophth Soln 15 ML Bottle EYERT SCH ×4 (13:25→14:07)
--- NOTE | 2020-02-03 13:54 | PCM.PREANE ---
Preanesthetic Assessment - Procedure Proposed Procedure: Cataract extraction Rt eye - Anesthesia/Transfusion/Family Hx Anesthesia History: Prior Anesthesia Without Reaction Transfusion History: Prior Transfusion Without Reaction - Review of Systems General: No Symptoms Pulmonary: No Symptoms Cardiovascular: No Symptoms Gastrointestinal: No Symptoms Neurological: Pre-Existing Deficit (Buldging cervical disc, neck stiffness , good ROM) Other: Reports: Anxiety (claustrophobia, ) - Physical Assessment NPO Status Date: 02/03/20 NPO Status Time: 06:30 Vital Signs: Last Vital Signs Temp 98.0 F 02/03/20 13:00 Pulse 83 02/03/20 13:00 Resp 16 02/03/20 13:00 BP 132/93 H 02/03/20 13:00 Pulse Ox 100 02/03/20 13:00 Height: 1.7 m Weight: 63.503 kg ASA Class: 2 Mental Status: Alert & Oriented x3 Airway Class: Mallampati = 2 Dentition: Reports: Normal Dentition Thyro-Mental Finger Breadths: 3 Mouth Opening Finger Breadths: 3 ROM/Head Extension: Full Lungs: Clear to Auscultation, Normal Respiratory Effort Cardiovascular: Regular Rate, Regular Rhythm - Allergies Allergies/Adverse Reactions: Allergies Allergy/AdvReac Type Severity Reaction Status Date / Time No Known Drug Allergies Allergy unknown Verified 02/02/20 11:48 - Acknowledgements Anesthesia Type Planned: MAC Pt an Appropriate Candidate for the Planned Anesthesia: Yes Alternatives and Risks of Anesthesia Discussed w Pt/Guardian: Yes Pt/Guardian Understands and Agrees with Anesthesia Plan: Yes PreAnesthesia Questionnaire HEENT History: Reports: Cataract, Hard of Hearing Other HEENT History: wears glasses Other Genitourinary History: UTI Other OB/BYN History: C section Musculoskeletal History: Reports: Arthritis Psychiatric History: Reports: Panic Attack (Claustrophobic) - HOME MEDS Home Medications: Home Meds Calcium Carbonate [Calcium] 500 mg PO DAILY 10/15/19 [History] Loratadine [Claritin] 10 mg PO DAILY 10/15/19 [History] Dextran 70/Hypromellose [Artificial Tears] 1 drop EYEBOTH ASDIRECTED PRN 01/12/20 [History] Fish Oil/[place]-3 Fatty Acids [Fish Oil 1,000 MG] 1 gm PO DAILY 01/12/20 [History] - CURRENT (IN HOUSE) MEDS Current Meds: Current Medications Brimonidine Tartrate (Alphagan 0.2% Oph Soln) 0 ml EYERT ASDIRECTED PALOMA Stop: 02/03/20 23:00 Last Admin: 02/03/20 13:17 Dose: 1 drop Documented by: Cefuroxime Sodium (Zinacef) 0 mg EYERT ASDIRECTED PALOMA Stop: 02/03/20 23:00 Lidocaine HCl (Xylocaine-Mpf 1%) 0 ml INJECT ASDIRECTED PALOMA Stop: 02/03/20 23:00 Phenylephrine HCl ([place]-Synephrine 2.5% Oph Soln) 0 ml EYERT ASDIRECTED PALOMA Stop: 02/03/20 23:00 Last Admin: 02/03/20 13:40 Dose: 1 drop Documented by: Pilocarpine HCl (Pilocar 4% Oph Soln) 0 ml EYERT ASDIRECTED PALOMA Stop: 02/03/20 23:00 Polymyxin/Trimethoprim Sulfate (Polytrim Oph Soln) 0 ml EYERT ASDIRECTED PALOMA Stop: 02/03/20 23:00 Last Admin: 02/03/20 13:13 Dose: 1 drop Documented by: Tetracaine HCl (Tetracaine 0.5% Steri-Unit Aminah) 0 ml EYEBOTH ASDIRECTED PALOMA Stop: 02/03/20 23:00 Tropicamide (Mydriacyl 1% Oph Soln) 0 ml EYERT ASDIRECTED PALOMA Stop: 02/03/20 23:00 Last Admin: 02/03/20 13:44 Dose: 1 drop Documented by:
[2020-02-03] MEDS: Tetracaine HCl/PF 0.5% 4 ML Bottle EYEBOTH SCH ×5 (14:13→14:48)
[2020-02-03] MEDS: Pilocarpine 4% Ophth Soln 15 ML Bot EYERT SCH ×2 (14:53→14:59)
--- NOTE | 2020-02-03 15:00 | PCM48HPAN ---
Post Anesthesia Note - EVALUATION WITHIN 48HRS OF ANESTHETIC Vital Signs in Normal Range: Yes Patient Participated in Evaluation: Yes Respiratory Function Stable: Yes Airway Patent: Yes Cardiovascular Function Stable: Yes Hydration Status Stable: Yes Pain Control Satisfactory: Yes Nausea and Vomiting Control Satisfactory: Yes Mental Status Recovered: Yes Vital Signs: Last Vital Signs Temp 36.7 C 02/03/20 13:00 Pulse 83 02/03/20 13:00 Resp 16 02/03/20 13:00 BP 132/93 H 02/03/20 13:00 Pulse Ox 100 02/03/20 13:00
== END 2020-02-03 15:08 | disposition home or self-care (01) ==
LOC: JD.SDS 13:01
PROVIDERS: ATTEND Ophthalmology
DX: H25.811 Combined forms of age-related cataract, right eye (principal); H35.3131 Nonexudative age-related macular degeneration, bilateral, early dry stage; H31.011 Macula scars of posterior pole (postinflammatory) (post-traumatic), right eye; H35.373 Puckering of macula, bilateral; H52.31 Anisometropia; Z98.890 Other specified postprocedural states; Z79.899 Other long term (current) drug therapy; Z96.1 Presence of intraocular lens
CPT/HCPCS: 66984; C1780; J0697; J2001

== ENCOUNTER 2020-02-16 06:58 | Day surgery (SDC) | payer MEDICARE, OTHER ==
--- NOTE | 2020-02-11 14:54 | PCM.SN.2 ---
- Free Text/Narrative Note: Left selective femoral nerve block at the adductor canal for post-procedure pain control under US guidance requested by Dr. Savage. Time Out: Start: End: Chart reviewed. Consent signed. Questions answered. Appropriate monitors applied. Time out performed. Left mid-shaft femur identified with ultrasound, scanning medially of femur, the femoral artery in the adductor canal visualized, and the femoral nerve located laterally to the artery. The skin was prepped lateral to the ultrasound probe with chlorahexadine times two. The 21ga 4 insulated block needle was inserted under direct ultrasound guidance into the adductor canal. 25mL of 0.5% ropivacaine with 1:200,000 epinephrine was injected circumferentially around the nerve with intermittent negative aspiration noted. Patient tolerated the procedure well. Sterile technique noted along with sterile gloves, mask, and sterile probe cover. See picture on progress note and vital signs on nurses notes. Block completed in PACU. Ashlyn Valladares CRNA
--- NOTE | 2020-02-15 16:52 | PCM.SN.2 ---
- Free Text/Narrative Note: Left selective femoral nerve block at the adductor canal for post-procedure pain control under US guidance requested by Dr. Savage. Time Out: 1020 Start: 0 End: 102 Chart reviewed. Consent signed. Questions answered. Appropriate monitors applied. Time out performed. Left mid-shaft femur identified with ultrasound, scanning medially of femur, the femoral artery in the adductor canal visualized, and the femoral nerve located laterally to the artery. The skin was prepped lateral to the ultrasound probe with chlorahexadine times two. The 21ga 4 insulated block needle was inserted under direct ultrasound guidance into the adductor canal. 25mL of 0.5% ropivacaine with 1:200,000 epinephrine was injected circumferentially around the nerve with intermittent negative aspiration noted. Patient tolerated the procedure well. Sterile technique noted along with sterile gloves, mask, and sterile probe cover. See picture on progress note and vital signs on nurses notes. Block completed in PACU. Ashlyn Valladares CRNA
--- NOTE | 2020-02-15 17:00 | PCM.PREANE ---
Preanesthetic Assessment - Procedure Proposed Procedure: Left Total Knee Arthroplasty - Anesthesia/Transfusion/Family Hx Anesthesia History: Prior Anesthesia Reaction Type of Anesthesia Reaction: Excessive Nausea/Vomiting Family History of Anesthesia Reaction: No Transfusion History: Prior Transfusion Without Reaction Intubation History: Unknown - Review of Systems General: No Symptoms Pulmonary: No Symptoms Cardiovascular: No Symptoms Gastrointestinal: No Symptoms, Constipation Neurological: No Symptoms (Arthritis, occasional lower back pain.) Other: Reports: None, Sinus Problem (Seasonal allergies) - Physical Assessment NPO Status Date: 02/15/20 NPO Status Time: 17:30 Vital Signs: Hr:72 Sat:99% Temp:97.2 Resp:16 B/P:121/93 Height: 1.7 m Weight: 63.049 kg ASA Class: 2 Mental Status: Alert & Oriented x3 Airway Class: Mallampati = 2 Dentition: Reports: Normal Dentition, [place] Thyro-Mental Finger Breadths: 3 Mouth Opening Finger Breadths: 3 ROM/Head Extension: Full Lungs: Clear to Auscultation, Normal Respiratory Effort Cardiovascular: Regular Rate, Regular Rhythm, No Murmurs - Lab Values: Laboratory Last Values MRSA (PCR) Negative 01/28/20 10:01 All labs reviewed and noted and within acceptable ranges to proceed with scheduled procedure. - Imaging/EKG Impressions: EKG: SB rate= 59, consider old anterior infarct. - Allergies Allergies/Adverse Reactions: Allergies Allergy/AdvReac Type Severity Reaction Status Date / Time hydrocodone Allergy Nausea and Verified 02/16/20 07:23 Vomiting - Anesthesia Plan Pre-Op Medication Ordered: Other (Preop oral meds: lyrica and tylenol @0708/Scopalamine patch behind right ear at 0708) - Acknowledgements Anesthesia Type Planned: Spinal (With left adductor canal block under US guidance for post operative pain control requested by Dr. Savage.) Pt an Appropriate Candidate for the Planned Anesthesia: Yes Alternatives and Risks of Anesthesia Discussed w Pt/Guardian: Yes Pt/Guardian Understands and Agrees with Anesthesia Plan: Yes PreAnesthesia Questionnaire HEENT History: Reports: Cataract, Hard of Hearing Other HEENT History: wears glasses Other Genitourinary History: UTI Other OB/BYN History: C section Musculoskeletal History: Reports: Arthritis - SUBSTANCE USE Tobacco Use Status *Q: Never Tobacco User Recreational Drug Use History: No - HOME MEDS Home Medications: Home Meds Calcium Carbonate [Calcium] 500 mg PO DAILY 10/15/19 [History] Loratadine [Claritin] 10 mg PO DAILY 10/15/19 [History] Dextran 70/Hypromellose [Artificial Tears] 1 drop EYEBOTH ASDIRECTED PRN 01/12/20 [History] Fish Oil/[place]-3 Fatty Acids [Fish Oil 1,000 MG] 1 gm PO DAILY 01/12/20 [History] Rivaroxaban [Xarelto] 10 mg PO DAILY #14 tab 02/13/20 [Rx] traMADol [Ultram] 50 - 100 mg PO Q4H PRN #40 tab 02/13/20 [Rx] - CURRENT (IN HOUSE) MEDS Current Meds: Current Medications Acetaminophen (Tylenol) 975 mg PO ONETIME ONE Stop: 02/16/20 06:01 Morphine Sulfate 8 mg/Epinephrine HCl 0.3 mg/Cefuroxime Sodium 750 mg/Ketorolac Tromethamine 30 mg/Sodium Chloride 7.9 ml 0 mg .XX ASDIRECTED PRN PRN Reason: Pain Stop: 02/16/20 13:00 Lactated Ringer's (Ringers, Lactated) 1,000 mls @ 125 mls/hr IV ASDIRECTED PALOMA Stop: 02/16/20 23:00 Lidocaine/Sodium Bicarbonate (Buffered Lidocaine 1% In Ns 8.4%) 0.25 ml IDERM ONETIME PRN PRN Reason: Prior to IV Start Stop: 02/16/20 18:00 Pregabalin (Lyrica) 50 mg PO ONETIME ONE Stop: 02/16/20 06:01 Sodium Chloride (Saline Flush) 10 ml FLUSH ASDIRECTED PRN PRN Reason: Keep Vein Open Stop: 02/16/20 18:00
[~2020-02-16 06:58] MED LIST changes: +Acetaminophen 325 MG Tab PO ONE; -Cefuroxime 10 MG/ML SYRINGE EYERT SCH; +Dexamethasone 4 MG/ML 5 ML MDV ONE; +EPINEPHrine 1 MG/ML SDV ONE; +Ketamine 500 mg/10 ML MDV ONE; +Ketorolac 15 MG/ML SDV ONE; +Lactated Ringers 1,000 ML ONE; +Lidocaine 1% 4 ML ONE; -Lidocaine 1% PF 2 ML SDV INJECT SCH; +Midazolam 1 MG/ML 2 ML SDV ONE; +Morphine 8 MG, EPINEPHrine 0.3 MG, Cefuroxime 750 MG, Ketorolac 30 MG, Sodium Chloride ... PRN; +Ondansetron 4 MG/2 ML SDV ONE; +Pregabalin 25 MG Cap PO ONE; +Propofol 200 MG/20 ML SDV ONE; +Ropivacaine 0.5% 5 MG/ML 30 ML SDV ONE; +Scopolamine 1.5 MG Transdermal Patch TRDERM PRN; +diphenhydrAMINE 50 MG/ML SDV ONE
[2020-02-16] MEDS ORDERED: Lidocaine 1%/Sod Bicarbonate in NS 8.4% 1 ML Syringe IDERM PRN (07:00)
[2020-02-16] MEDS ORDERED: Lactated Ringers 1,000 ML IV SCH (07:00)
[2020-02-16] MEDS ORDERED: Sodium Chloride 0.9% 10 ML Syringe FLUSH PRN (07:00)
[2020-02-16] MEDS ORDERED: Bupivacaine 0.25% 10 ML SDV ONE (07:36)
[2020-02-16] MEDS ORDERED: Vancomycin 1 GM SDV ONE (07:36)
[2020-02-16] MEDS ORDERED: fentaNYL 100 MCG/2 ML SDV ONE (08:18)
[2020-02-16] MEDS ORDERED: HYDROmorphone 0.5 MG/0.5 ML Syringe IVPUSH PRN (08:35)
[2020-02-16] MEDS ORDERED: Metoclopramide 10 MG/2 ML SDV IV PRN (08:35)
[2020-02-16] MEDS ORDERED: Ondansetron 4 MG/2 ML SDV IVPUSH PRN (08:35)
[2020-02-16] MEDS ORDERED: fentaNYL 100 MCG/2 ML SDV IVPUSH PRN (08:35)
[2020-02-16] MEDS ORDERED: Haloperidol Lactate 5 MG/ML SDV IVPUSH ONE (08:35)
--- NOTE | 2020-02-16 09:54 | PCM.POSTAN ---
POST ANESTHESIA ASSESSMENT - MENTAL STATUS Mental Status: Alert - VITAL SIGNS Vital Signs: Last Vital Signs Temp 98.8 02/16/20 09:48 Pulse 71 02/16/20 09:48 Resp 12 02/16/20 09:48 BP 116/67 02/16/20 09:48 Pulse Ox 99% 02/16/20 09:48 - RESPIRATORY Respiratory Status: Respiratory Rate WNL, Airway Patent, O2 Saturation Stable, Supplemental Oxygen - CARDIOVASCULAR CV Status: Pulse Rate WNL, Blood Pressure Stable - GASTROINTESTINAL GI Status: No Symptoms - POST OP HYDRATION Hydration Status: Adequate & Stable
--- NOTE | 2020-02-16 11:10 | CR ---
Left knee: AP and lateral views of the left knee were obtained. Comparison: Previous left knee exam is not available. Knee prosthesis is seen. Components are aligned. Soft tissue air is noted from the surgical procedure. No underlying osseous abnormality is seen. Impression: 1. Satisfactory postop radiographic appearance of recently placed left knee prosthesis. Diagnostic code #2
--- NOTE | 2020-02-16 12:04 | PCM48HPAN ---
Post Anesthesia Note - EVALUATION WITHIN 48HRS OF ANESTHETIC Vital Signs in Normal Range: Yes Patient Participated in Evaluation: Yes Respiratory Function Stable: Yes Airway Patent: Yes Cardiovascular Function Stable: Yes Hydration Status Stable: Yes Pain Control Satisfactory: Yes Nausea and Vomiting Control Satisfactory: Yes Mental Status Recovered: Yes Vital Signs: Last Vital Signs Temp 36.4 C 02/16/20 11:22 Pulse 80 02/16/20 11:22 Resp 18 02/16/20 11:22 BP 129/104 H 02/16/20 11:22 Pulse Ox 96 02/16/20 11:22
[2020-02-16] MEDS ORDERED: traMADol 50 MG Tab PO ONE (14:00)
--- NOTE | 2020-03-07 10:35 | PCM.OPNOTE ---
- General Post-Op/Procedure Note Date of Surgery/Procedure: 02/16/20 Operative Procedure(s): left total knee arthroplasyt Pre Op Diagnosis: left knee osteoarthrosis Post-Op Diagnosis: Same Anesthesia Technique: Local, MAC, Spinal Primary Surgeon: Parveen Savage Anesthesia Provider: Ashlyn Valladares Revenue Accounting Manager: Ratna Flores Revenue Accounting Manager: Naomy Bonner EBL in mLs: 100 Complications: None Condition: Good Free Text/Narrative:: 05/30 9mm 32x10
--- NOTE | 2020-03-07 10:59 | OR ---
DATE OF OPERATION: 02/16/2020 SURGEON: Parveen Savage MD OPERATION PERFORMED: Left total knee arthroplasty. PREOPERATIVE DIAGNOSIS: Left knee osteoarthrosis. POSTOPERATIVE DIAGNOSIS: Left knee osteoarthrosis. ANESTHESIA: Local MAC with spinal. ANESTHESIA PROVIDER: Ashlyn Valladares CRNA CAR WASHER: Ratna Flores PA-C and Noamy Bonner LPN ESTIMATED BLOOD LOSS: 100 mL. COMPLICATIONS: None. CONDITION: Stable. IMPLANTS: 1. [place] size 4 press-fit CR femur. 2. [place] size 4 press-fit tibial base plate. 3. [place] size 4, 9 mm CS polyethylene insert. 4. [place] size 32 x 10 mm press fit asymmetric patella. DESCRIPTION OF PROCEDURE: The patient was identified in the preop holding area. Proper site was marked and identified by the surgeon. The patient was taken back to the operating theater. After adequate anesthesia, the patient's left lower extremity had a nonsterile tourniquet applied and it was sterilely prepped and draped in the usual sterile fashion. OR time-out was performed. The patient received 2 g IV Ancef. At this time, the left lower extremity was exsanguinated. Tourniquet was insufflated to 300 mmHg. Standard medial parapatellar incision was made. Medial parapatellar arthrotomy was created. Deep fibers of the MCL were raised and anterior fat pad was resected. At this time, attention was turned to the patella. Patella measured a 24, it was resected to a 14 for a 32 x 10 mm patella. Drill holes were then drilled and found to be in adequate position. The drill was then drilled in the distal femur and the intramedullary distal femoral cutting guide was then placed. 8 mm was resected off the distal femur and was found to be an adequate resection. Sizing guide was placed. It was found to be a size 4 press-fit CR femur that was shown on the implant record at the beginning of this dictation. The drill holes were drilled for the epicondylar axis using Whitesides line and epicondyles as reference. At this time, the 4-in-1 cutting block was placed. An anterior posterior and anterior and posterior chamfer cuts were then completed. Attention was turned to the tibia. The posterior medial lateral retractors were placed. The extramedullary tibial guide was placed. It was placed in the old footprint of the ACL. It was aligned with the center of the ankle and 0 degrees of slope, 9 mm was then resected off the unaffected side. There was found to be an acceptable reduction. At this time, posterior osteophytes were removed along with medial and lateral meniscus. A trial implant was placed with a correct sized tibia that was mentioned at the beginning of the dictation. A [place] size 4, 9 mm CS polyethylene insert was then placed. The patient's knee was brought through range of motion. The patella was tracking centrally and was stable to varus and valgus stress. Alignment was found to be roughly at 0 degrees. The tibia was stamped and drilled in proper rotation. The universal tibial base plate was impacted in place. Next, the [place] size 4 press-fit CR femur impacted into place and the [place] size 4 x 9 mm CS polyethylene insert was placed. The patient's knee was brought into full extension. The patella was then press-fit in place at this time. Tourniquet was deflated. One liter Irrisept solution was irrigated through the knee along with 1 L of pulse lavage irrigation with Ancef. Periarticular injection was then completed. The patient's knee was brought through a range of motion. Knee was found to be stable to varus valgus stress, the patella was tracking centrally with full range of motion. At this time, a #2 barbed suture was used for closure of the medial parapatellar arthrotomy. Topical tranexamic acid was placed. 2-0 Vicryl was used subcutaneously, Prineo was used for the skin. The patient tolerated the procedure well and was sent to the PACU in stable condition. MMODAL /[id number]
== END 2020-02-16 14:40 | disposition home or self-care (01) ==
LOC: JD.SDS 06:58
PROVIDERS: ATTEND Orthopaedic Surgery
DX: M17.12 Unilateral primary osteoarthritis, left knee (principal); G89.18 Other acute postprocedural pain; Z88.5 Allergy status to narcotic agent; Z79.899 Other long term (current) drug therapy; Z98.890 Other specified postprocedural states
CPT/HCPCS: 27447; 73560; 87641; 97116; 97161; 97165; A9270; C1776; J0171; J0697; J1100; J1200; J1885; J2001; J2250; J2270; J2370; J2405; J2704; J2795; J3010; J3370; J3490; J7120; 01402; 64450

== ENCOUNTER 2020-06-08 07:27 | Day surgery (SDC) | payer MEDICARE, OTHER ==
--- NOTE | 2020-06-07 11:22 | PCM.PREANE ---
<Xin Rodriguez - Last Filed: 06/08/20 08:25> Preanesthetic Assessment - Procedure Proposed Procedure: Screening Colonoscopy - Anesthesia/Transfusion/Family Hx Anesthesia History: Prior Anesthesia Reaction Type of Anesthesia Reaction: Excessive Nausea/Vomiting Family History of Anesthesia Reaction: No Transfusion History: Prior Transfusion Without Reaction Intubation History: Unknown - Review of Systems General: No Symptoms (Hard of Hearing, bilateral hearing aides) Pulmonary: No Symptoms Cardiovascular: No Symptoms Gastrointestinal: Constipation Neurological: No Symptoms Other: Reports: Sinus Problem - Physical Assessment ASA Class: 2 Mental Status: Alert & Oriented x3 Airway Class: Mallampati = 2 Dentition: Reports: Normal Dentition Thyro-Mental Finger Breadths: 2 Mouth Opening Finger Breadths: 3 ROM/Head Extension: Full Lungs: Clear to Auscultation, Normal Respiratory Effort Cardiovascular: Regular Rate, Regular Rhythm - Allergies Allergies/Adverse Reactions: Allergies Allergy/AdvReac Type Severity Reaction Status Date / Time hydrocodone AdvReac Nausea and Verified 06/07/20 13:17 Vomiting - Anesthesia Plan Pre-Op Medication Ordered: None - Acknowledgements Anesthesia Type Planned: MAC Pt an Appropriate Candidate for the Planned Anesthesia: Yes Alternatives and Risks of Anesthesia Discussed w Pt/Guardian: Yes Pt/Guardian Understands and Agrees with Anesthesia Plan: Yes PreAnesthesia Questionnaire - HOME MEDS Home Medications: Home Meds Calcium Carbonate [Calcium] 500 mg PO DAILY 10/15/19 [History] Loratadine [Claritin] 10 mg PO DAILY 10/15/19 [History] Ascorbic Acid/Collagen Hydr [Collagen Plus Vit C] 1 cap PO DAILY 06/07/20 [History] Lactobacillus Acidophilus [Probiotic] 1 cap PO DAILY 06/07/20 [History] <Ashlyn Valladares - Last Filed: 06/08/20 08:31> Preanesthetic Assessment - Anesthesia/Transfusion/Family Hx Anesthesia History: Prior Anesthesia Reaction Type of Anesthesia Reaction: Excessive Nausea/Vomiting Family History of Anesthesia Reaction: No Transfusion History: Prior Transfusion Without Reaction Intubation History: Unknown - Review of Systems Gastrointestinal: Constipation Neurological: No Symptoms (occasional lower back pain/ arthritis) Other: Reports: Sinus Problem (seasonal allergies) - Physical Assessment NPO Status Date: 06/07/20 NPO Status Time: 04:00 Vital Signs: HR:82 Sat:100% Temp:97.6 B/P:127/80 Resp:16 Height: 1.7 m Weight: 62 kg ASA Class: 2 Mental Status: Alert & Oriented x3 - Lab Values: All labs reviewed and noted and within acceptable ranges to proceed with scheduled procedure. - Imaging/EKG Impressions: EKG: SB rate= 57, consider old anterior infarct. - Anesthesia Plan Pre-Op Medication Ordered: None - Acknowledgements Anesthesia Type Planned: MAC Pt an Appropriate Candidate for the Planned Anesthesia: Yes Alternatives and Risks of Anesthesia Discussed w Pt/Guardian: Yes Pt/Guardian Understands and Agrees with Anesthesia Plan: Yes PreAnesthesia Questionnaire HEENT History: Reports: Cataract, Hard of Hearing Other HEENT History: wears glasses Other Genitourinary History: UTI Other OB/BYN History: C section Musculoskeletal History: Reports: Arthritis Psychiatric History: Reports: Panic Attack - CURRENT (IN HOUSE) MEDS Current Meds: Current Medications Lactated Ringer's (Ringers, Lactated) 1,000 mls @ 125 mls/hr IV ASDIRECTED PALOMA Stop: 06/08/20 23:00 Lidocaine/Sodium Bicarbonate (Lidocaine 1%/Sod Bicarbonate In Ns 8.4% 1 Ml Syringe) 0.25 ml IDERM ONETIME PRN PRN Reason: Prior to IV Start Stop: 06/08/20 18:00 Scopolamine (Scopolamine 1.5 Mg Transdermal Patch) 1.5 mg TRDERM ONETIME PRN PRN Reason: PONV Stop: 06/09/20 23:00 Last Admin: 06/08/20 08:05 Dose: 1.5 mg Documented by: Sodium Chloride (Sodium Chloride 0.9% 10 Ml Syringe) 10 ml FLUSH ASDIRECTED PRN PRN Reason: Keep Vein Open Stop: 06/08/20 18:00 Discontinued Medications Fentanyl (Fentanyl 100 Mcg/2 Ml Sdv) Confirm Administered Dose 100 mcg .ROUTE .STK-MED ONE Stop: 06/08/20 07:15 Lidocaine HCl (Xylocaine-Mpf 1%) Confirm Administered Dose 4 mls @ as directed .ROUTE .STK-MED ONE Stop: 06/08/20 07:15 Propofol (Propofol 200 Mg/20 Ml Sdv) Confirm Administered Dose 400 mg .ROUTE .STK-MED ONE Stop: 06/08/20 07:15
[~2020-06-08 07:27] MED LIST changes: -Acetaminophen 325 MG Tab PO ONE; -Dexamethasone 4 MG/ML 5 ML MDV ONE; -EPINEPHrine 1 MG/ML SDV ONE; -Ketamine 500 mg/10 ML MDV ONE; -Ketorolac 15 MG/ML SDV ONE; +Lactated Ringers 1,000 ML IV SCH; -Lactated Ringers 1,000 ML ONE; +Lidocaine 1%/Sod Bicarbonate in NS 8.4% 1 ML Syringe IDERM PRN; -Midazolam 1 MG/ML 2 ML SDV ONE; -Morphine 8 MG, EPINEPHrine 0.3 MG, Cefuroxime 750 MG, Ketorolac 30 MG, Sodium Chloride ... PRN; -Ondansetron 4 MG/2 ML SDV ONE; -Pregabalin 25 MG Cap PO ONE; -Ropivacaine 0.5% 5 MG/ML 30 ML SDV ONE; +Sodium Chloride 0.9% 10 ML Syringe FLUSH PRN; -diphenhydrAMINE 50 MG/ML SDV ONE; +fentaNYL 100 MCG/2 ML SDV ONE
--- NOTE | 2020-06-08 09:35 | PCM48HPAN ---
Post Anesthesia Note - EVALUATION WITHIN 48HRS OF ANESTHETIC Vital Signs in Normal Range: Yes Patient Participated in Evaluation: Yes Respiratory Function Stable: Yes Airway Patent: Yes Cardiovascular Function Stable: Yes Hydration Status Stable: Yes Pain Control Satisfactory: Yes Nausea and Vomiting Control Satisfactory: Yes Mental Status Recovered: Yes Vital Signs: Last Vital Signs Temp 36.4 C 06/08/20 07:45 Pulse 82 06/08/20 07:45 Resp 16 06/08/20 07:45 BP 127/80 06/08/20 07:45 Pulse Ox 100 06/08/20 07:45
--- NOTE | 2020-06-08 09:40 | PCM.PRNOTE ---
- Free Text/Narrative Note: Date: 06/08/2020 Procedure: screening colonoscopy History: normal colonoscopy 10 years ago Endoscopist: Elder Lee MD Findings: pedunculated polyp ~ 1 cm at hepatic flexure, with adjacent smaller sessile polyp. Small sessile polyp in distal sigmoid colon. Prep was very good. Detailed Report: The patient was taken to the endoscopy suite and placed in left lateral decubitus position. Timeout was performed and monitored anesthesia care was initiated. Visual inspection of the anus revealed no abnormality. Digital rectal exam was unremarkable. The colonoscope was inserted and advanced all the way to the cecum with ease. The appendiceal orifice was visualized. Prep was very good. The scope was slowly withdrawn and mucosal surfaces carefully inspected. A pedunculated polyp was identified at the level of the hepatic flexure. This was removed using hot snare polypectomy technique. Adjacent to this polyp a approximately 1 cm sessile polyp was identified. This was biopsied with jumbo forceps, and remaining tissue was fulgurated. Another polyp was identified in the distal sigmoid, similar in appearance to the sessile polyp at the hepatic flexure. An attempt was made with hot snare polypectomy technique to remove this. However, the tissue was stuck after transection with a hot snare, and jumbo forceps were used to remove the polyp successfully. No pathology was noted on retroflexion within the rectum. Air was suctioned from the distal colon and rectum prior to withdrawal of the scope. The patient tolerated the procedure well.
== END 2020-06-08 10:05 | disposition home or self-care (01) ==
LOC: JD.SDS 07:27
PROVIDERS: ATTEND Surgery
DX: Z12.11 Encounter for screening for malignant neoplasm of colon (principal); D12.3 Benign neoplasm of transverse colon; D12.5 Benign neoplasm of sigmoid colon; Z88.8 Allergy status to other drugs, medicaments and biological substances; Z79.899 Other long term (current) drug therapy; Z98.890 Other specified postprocedural states
CPT/HCPCS: 45380; 45385; 88305; 88342; A9270; J2704; J3010; J7120; 00812

== ENCOUNTER 2023-07-12 08:12 | Day surgery (SDC) | payer MEDICARE ==
[~2023-07-12 08:12] MED LIST changes: -Lactated Ringers 1,000 ML IV SCH; -Lidocaine 1% 4 ML ONE; -Lidocaine 1%/Sod Bicarbonate in NS 8.4% 1 ML Syringe IDERM PRN; -Propofol 200 MG/20 ML SDV ONE; -Scopolamine 1.5 MG Transdermal Patch TRDERM PRN; +Sodium Chloride 0.9% 10 ML Syringe FLUSH SCH; -fentaNYL 100 MCG/2 ML SDV ONE
[2023-07-12] MEDS: Lactated Ringers 1,000 ML IV SCH (08:30)
[2023-07-12] MEDS ORDERED: Lidocaine 2% 5 ML SDV ONE (08:51)
[2023-07-12] MEDS ORDERED: Propofol 200 MG/20 ML SDV ONE ×2 (08:51→09:15)
[2023-07-12] MEDS ORDERED: Ondansetron 4 MG/2 ML SDV IVPUSH PRN (09:39)
== END 2023-07-12 10:30 | disposition home or self-care (01) ==
LOC: JD.SDS 08:12
PROVIDERS: ATTEND Surgery
DX: Z12.11 Encounter for screening for malignant neoplasm of colon (principal); E78.5 Hyperlipidemia, unspecified; Z86.010 Personal history of colon polyps; Z88.5 Allergy status to narcotic agent; Z79.899 Other long term (current) drug therapy
CPT/HCPCS: J2704; J3490; J7120